=== PATIENT | female | born 2005 | race Caucasian/White ===

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

== ENCOUNTER 2023-03-25 18:12 | Emergency (ER) | payer MEDICAID ==
[~2023-03-25] VITALS: Ht 172.7 cm; Wt 117.9 kg
[2023-03-25 18:57] VITALS: BP 117/74; PULSE 83; RESP 18; TEMP 98.2; O2SAT 97
[2023-03-25] MEDS ORDERED: NAPR-54 PO (22:45)
[2023-03-25] MEDS ORDERED: KETOROLAC 60 MG/2 ML VIAL IM ONE (22:50)
== END 2023-03-25 22:50 | disposition home or self-care (01) ==
LOC: MED 18:12
DX: S63.502A Unspecified sprain of left wrist, initial encounter (principal); S50.02XA Contusion of left elbow, initial encounter; Z79.899 Other long term (current) drug therapy; W05.1XXA Fall from non-moving nonmotorized scooter, initial encounter; Y93.89 Activity, other specified; Y92.89 Other specified places as the place of occurrence of the external cause; Y99.8 Other external cause status
CPT/HCPCS: 73080; 73110; 96372; 99284; J1885